=== PATIENT | female | born 1940 | race Caucasian/White ===

== ENCOUNTER → 2019-06-09 11:20 | Outpatient (CLI) | payer MEDICARE, OTHER, SELFPAY ==
--- NOTE | 2019-06-09 11:29 | CT_ITS ---
STUDY: CT SCAN HIP RIGHT REASON FOR EXAM: Female, 78 years old. [facility] HIP RADIATION DOSAGE (If Supplied By Facility): CTDIvol = ( 13.01 ) mGy, DLP = ( 700.08 ) mGycm. Individualized dose optimization techniques were used for this CT.? TECHNIQUE: Multiple axial tomographic images of both hip joints were obtained without intravenous contrast administration. Coronal and axial reconstruction was obtained. COMPARISON: None. FINDINGS: The patient is status post left total hip replacement. There is good alignment. Moderate degree of joint space narrowing of the right hip joint. Focal degenerative spurring is seen along the lateral aspect of the right femoral head. CT/Extremity Lower without Contra IMPRESSION: Status post left hip replacement. 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 Electronically Signed: Juan Hall, at 13:08 EST , Service support ,
== END ==
PROVIDERS: PCP Family Medicine; Referring Provider Orthopaedic Surgery; Visit Provider Orthopaedic Surgery
DX: Z01.818 Encounter for other preprocedural examination (principal); Z01.810 Encounter for preprocedural cardiovascular examination; M16.11 Unilateral primary osteoarthritis, right hip; E07.9 Disorder of thyroid, unspecified
CPT/HCPCS: 36415; 73700; 80048; 84443; 85025; 87081; 93005

== ENCOUNTER → 2019-06-28 12:31 | Outpatient (CLI) | payer MEDICARE, OTHER, SELFPAY ==
[2019-06-09 12:16] VITALS: BP 135/92; PULSE 66; RESP 16; TEMP 37.2; O2SAT 94; BMI 25.2
--- NOTE | 2019-06-09 12:40 | SDCEKG_ITS ---
Test Reason : Blood Pressure : / mmHG Vent. Rate : 060 BPM Atrial Rate : 060 BPM P-R Int : 154 ms QRS Dur : 084 ms QT Int : 430 ms P-R-T Axes : 051 -12 010 degrees QTc Int : 430 ms Normal sinus rhythm Normal ECG Confirmed by ANJALI FRANCISCO, KRISHNA ([id number]), mapping editor MONO PUENTE ([id number]) on 06/13/2019 2:38:28 PM Referred By: Pee Mandel Confirmed By:CHERELLE ALBA MD
[2019-06-09 13:46] LABS: Absolute Lymphocyte Count 2.58 X10^3/uL (0.83-4.51); Absolute Neutrophil Count 5.5 X10^3/uL (2.0-7.7); Basophil# 0.04 X10^3/uL; Basophil% 0.4 % (0-1); Eosinophil# 0.23 X10^3/uL; Eosinophils% 2.5 % (0-5); Hematocrit 48.5 % (37-47); Hemoglobin 15.3 g/dL (12.0-15.0); Lymphocyte # 2.58 X10^3/ul (4.0); Lymphocyte % 28.2 % (19-41); Mean Corp Hgb Conc 31.5 g/dL (32-36); Mean Corpuscular Hgb 29.4 pg (27.0-32.0); Mean Corpuscular Volume 93.3 fL (81-99); Mean Platelet Vol. 10.1 fl (6.2-12.0); Monocyte# 0.73 X10^3/uL; NRBC Flagged by Analyzer 0 % (0-5); Neutrophil # 5.54 X10^3/uL (2.7-7.7); Neutrophil % 60.6 % (47-70); Platelet Count 299 K/mm3 (150-450); RBC Distribution Width CV 12.6 % (11.6-14.6); RBC Distribution Width SD 43.5 fl (35.1-43.9); White Blood Count 9.2 K/mm3 (4.4-11.0)
[2019-06-09 14:31] LABS: Anion Gap 3 (5-15); BUN 14 mg/dL (7-18); BUN/Creat Ratio 13.9 RATIO (10-20); Calcium,Total 9.4 mg/dL (8.5-10.1); Chloride 106 mmol/L (98-107); Creatinine, Serum 1.01 mg/dL (0.55-1.02); EST Glomerular Filtration Rate 56 mL/min (>60); Est Glom Filt Rate - Afr Amer 68 mL/min (>60); Estimated Creatinine Clearance 32.44 ml/min; Glucose 77 mg/dL (74-106); Potassium 4.9 mmol/L (3.5-5.1); Sodium Level 139 mmol/L (136-145)
== END ==
PROVIDERS: Anesthesiology; PCP Family Medicine; Referring Provider Orthopaedic Surgery; Visit Provider Orthopaedic Surgery
DX: Z01.818 Encounter for other preprocedural examination (principal); Z01.810 Encounter for preprocedural cardiovascular examination; E07.9 Disorder of thyroid, unspecified; Z53.9 Procedure and treatment not carried out, unspecified reason
CPT/HCPCS: 36415; 80048; 84443; 85025; 87081; 93005